=== PATIENT | female | born 1980 ===

== ENCOUNTER 2017-08-10 22:15 | Emergency (ER) | payer OTHER ==
[2017-08-10 22:47] VITALS: RESP 16
--- NOTE | 2017-08-10 23:18 | ED PDOC ---
HPI: Chest Pain Time Seen by Provider: 08/10/17 22:45 Chief Complaint (Nursing): Chest Pain Chief Complaint (Provider): Chest Pain History Per: Patient History/Exam Limitations: no limitations Onset/Duration Of Symptoms: Hrs (since afternoon) Current Symptoms Are (Timing): Still Present Additional Complaint(s): Patient is a 37 y/o female with a history of high blood pressure who presents to the ED complaining of chest pain since this afternoon. She states that for the past hour, the pain has only been on the left side. Patient complains that she feels she can't get enough air to lungs with deep breaths, and they make the pain worse. She denies radiation, chills, or sweats, and has no cardiac history. PMD: Non-CPH Past Medical History Reviewed: Historical Data, Nursing Documentation, Vital Signs Vital Signs: Last Vital Signs Temp 98.2 F 08/11/17 02:00 Pulse 63 08/11/17 02:00 Resp 16 08/11/17 02:00 BP 138/82 08/11/17 02:00 Pulse Ox 100 08/11/17 02:00 - Medical History PMH: HTN - Surgical History Surgical History: No Surg Hx - Family History Family History: States: Unknown Family Hx - Home Medications Home Medications: Ambulatory Orders Medication Instructions Recorded Ibuprofen [Motrin Tab] 600 mg PO Q6 #30 tab 08/11/17 - Allergies Allergies/Adverse Reactions: Allergies Allergy/AdvReac Type Severity Reaction Status Date / Time No Known Allergies Allergy Verified 08/10/17 22:20 Review of Systems ROS Statement: Except As Marked, All Systems Reviewed And Found Negative Constitutional: Negative for: Chills, Sweats Cardiovascular: Positive for: Chest Pain (currently left-sided with no radiation ) Respiratory: Positive for: Shortness of Breath Physical Exam - Reviewed Nursing Documentation Reviewed: Yes Vital Signs Reviewed: Yes - Physical Exam Appears: Positive for: Non-toxic, No Acute Distress Head Exam: Positive for: ATRAUMATIC, NORMAL INSPECTION, NORMOCEPHALIC Skin: Positive for: Normal Color, Warm, DRY Eye Exam: Positive for: Normal appearance, EOMI, PERRL. Negative for: Nystagmus ENT: Positive for: Normal ENT Inspection Neck: Positive for: Normal, Painless ROM, Supple Cardiovascular/Chest: Positive for: Regular Rate, Rhythm. Negative for: Murmur Respiratory: Positive for: Normal Breath Sounds. Negative for: Respiratory Distress Gastrointestinal/Abdominal: Positive for: Normal Exam, Bowel Sounds, Soft. Negative for: Tenderness Back: Positive for: Normal Inspection Extremity: Positive for: Normal ROM. Negative for: Pedal Edema, Deformity Neurologic/Psych: Positive for: Alert, Oriented. Negative for: Motor/Sensory Deficits Comments: obese - Laboratory Results Result Diagrams: 08/10/17 23:21 08/10/17 23:21 - ECG O2 Sat by Pulse Oximetry: 100 (RA) Pulse Ox Interpretation: Normal Medical Decision Making Medical Decision Making: Time: 22:58 Initial Impression: atypical chest pain Initial Plan: --EKG --BMP --Troponin --CBC --D Dimer --Chest x-ray --Toradol Time: 00:53 --CT Angio Time: 1:49 CT Angio FINDINGS: Artifacts: Motion artifact degrades image quality. Heart, aorta and Pulmonary arteries: Heart size is normal. There is no pericardial effusion.There is no aneurysm or dissection. There is perfusion of the 3 arch vessels. There are no central pulmonary emboli. Bolus timing limits evaluation of peripheral vessels. There are no large peripheral pulmonary emboli Lungs and pleural spaces: Trachea and main bronchi are patent.There is no pneumothorax. There is no focal consolidation. There are no effusions. Mediastinum: Esophagus is unremarkable. There are no pathologically enlarged mediastinal or hilar nodes. Thyroid: Thyroid is unremarkable Bones/joints: There are no acute osseous abnormalities. Soft tissues: unremarkable Upper abdomen: There are no acute abnormalities in the visualized portion of the abdomen. IMPRESSION: No aneurysm, dissection or pulmonary embolus, no focal pneumonia Time: 1:53 Patient is feeling significantly improved, no longer having pain. Had very minor rash after infusion of contrast. Informed of results and told her to f/u w/ PMD. Return precautions given. Scribe Attestation: Documented by Dada Fernandez, acting as a scribe for Chidi Díaz MD Provider Scribe Attestation: All medical record entries made by the Scribe were at my direction and personally dictated by me. I have reviewed the chart and agree that the record accurately reflects my personal performance of the history, physical exam, medical decision making, and the department course for this patient. I have also personally directed, reviewed, and agree with the discharge instructions and disposition. Disposition - Clinical Impression Clinical Impression: Atypical chest pain - Disposition Referrals: Curt Montoya MD [Family Provider] - Disposition: Routine/Home Disposition Time: 02:00 Condition: STABLE Prescriptions: Ibuprofen [Motrin Tab] 600 mg PO Q6 #30 tab Instructions: Noncardiac Chest Pain (ED) Forms: [facility] (Welsh), [facility] ED School/Work Excuse Print Language: TURKISH
[2017-08-10 23:26] LABS: BASO # 0.1 K/uL (0.0-0.2); EOS # 0.3 K/uL (0.0-0.7); EOS % 2.5 % (0.0-4.0); HEMATOCRIT 41.7 % (34.0-47.0); LYMPH # 3.1 K/uL (1.0-4.3); LYMPH % 27.7 % (20.0-40.0); MEAN CELL VOLUME 84.5 fl (81.0-99.0); MEAN CORPUSCULAR HGB CONC 33.1 g/dL (33.0-37.0); MEAN PLATELET VOLUME 8.5 fl (7.2-11.7); MONO # 0.5 K/uL (0.0-0.8); MONO % 4.7 % (0.0-10.0); NEUT # 7.1 K/uL (1.8-7.0); NEUT % 64.1 % (50.0-75.0); NRBC % 0.1 % (0.0-0.0); RED CELL DISTRIBUTION WIDTH 13.1 % (11.5-14.5); WHITE BLOOD COUNT 11.1 K/uL (4.8-10.8)
[2017-08-10 23:34] LABS: BLOOD UREA NITROGEN 16 mg/dl (7-17); CARBON DIOXIDE 30 mmol/L (22-30); CHLORIDE 103 mmol/L (98-107); GFR AFRICAN-AMERICAN > 60; GLUCOSE,RANDOM 109 mg/dL (65-105); POTASSIUM 4.5 MMOL/L (3.6-5.0); SODIUM 141 mmol/l (132-148)
[2017-08-11] MEDS ORDERED: Iodixanol 320 MG/ML 100 ML BOTTLE IV ONE (01:02)
[2017-08-11] MEDS ORDERED: Sodium Chloride 0.9% 50 ML IV ONE (01:02)
[2017-08-11 01:45] VITALS: O2SAT 100
--- NOTE | 2017-08-11 01:49 | CT ---
EXAM: CT Angiography Chest With Intravenous Contrast EXAM DATE/TIME: 08/11/2017 12:53 AM CLINICAL HISTORY: 37 years old, female; Pain; Chest pain; Additional info: R/O pe TECHNIQUE: Axial computed tomographic angiography images of the chest with intravenous contrast using pulmonary embolism protocol. All CT scans at this facility use one or more dose reduction techniques, viz.: automated exposure control; ma/kV adjustment per patient size (including targeted exams where dose is matched to indication; i.e. head); or iterative reconstruction technique. MIP reconstructed images were created and reviewed. Coronal and sagittal reformatted images were created and reviewed. CONTRAST: 95 mL of [id number] administered intravenously. COMPARISON: There are no prior studies for comparison. FINDINGS: Artifacts: Motion artifact degrades image quality. Heart, aorta and Pulmonary arteries: Heart size is normal. There is no pericardial effusion.There is no aneurysm or dissection. There is perfusion of the 3 arch vessels. There are no central pulmonary emboli. Bolus timing limits evaluation of peripheral vessels. There are no large peripheral pulmonary emboli Lungs and pleural spaces: Trachea and main bronchi are patent.There is no pneumothorax. There is no focal consolidation. There are no effusions. Mediastinum: Esophagus is unremarkable. There are no pathologically enlarged mediastinal or hilar nodes. Thyroid: Thyroid is unremarkable Bones/joints: There are no acute osseous abnormalities. Soft tissues: unremarkable Upper abdomen: There are no acute abnormalities in the visualized portion of the abdomen. IMPRESSION: No aneurysm, dissection or pulmonary embolus, no focal pneumonia
[2017-08-11 02:01] VITALS: BP 138/82; PULSE 63; TEMP 98.2
--- NOTE | 2017-08-11 08:06 | CARD ---
APPROVED REPORT EKG Measurement Heart [id number] <Conclusion> Normal sinus rhythm with sinus arrhythmia Normal ECG
--- NOTE | 2017-08-11 08:50 | RAD ---
HISTORY: cp, sob COMPARISON: No prior. TECHNIQUE: Chest PA and lateral FINDINGS: LUNGS: No active pulmonary disease. PLEURA: No significant pleural effusion identified. No pneumothorax apparent. CARDIOVASCULAR: Normal. OSSEOUS STRUCTURES: No significant abnormalities. VISUALIZED UPPER ABDOMEN: Normal. OTHER FINDINGS: None. IMPRESSION: No active disease.
== END 2017-08-11 02:03 | disposition home or self-care (01) ==
LOC: H.ER 22:15
DX: R07.89 Other chest pain (principal); I10 Essential (primary) hypertension
CPT/HCPCS: 71020; 71275; 80048; 81025; 84484; 85025; 85378; 93005; 96374; 99285; J1885; Q9967